=== PATIENT | female | born 1995 | race Caucasian/White ===

== ENCOUNTER 2025-05-24 13:50 | Emergency (ER) | payer SELFPAY ==
[~2025-05-24] VITALS: Ht 160 cm; Wt 87.5 kg
[2025-05-24 14:26] LABS: MEAN PLATELET VOLUME 8.7 FL (7.4-10.4); RED CELL DISTRIBUTION WIDTH 13.2 % (11.5-14.5)
--- NOTE | 2025-05-24 14:31 | Physician Documentation ---
History of Present Illness ~ Chief Complaint: Abdominal Pain Stated Complaint: KIDNEY PAIN Time Seen by MD: 14:26 Primary Medical Doctor: none HPI 30-year-old female presents to the ED with a complaint of aching abdominal pain and pelvic pain and combined with the lower back pain. Denies any fevers but does report urinary frequency and burning urination. She also denies any foul odors coming from her genitourinary area states that her urine looked cloudy with purulent discharge Day of Onset: May 24, 2025 Medication Reconciliation Allergies: Coded Allergies: No Known Allergies (Unverified , 05/24/25) Scheduled Cephalexin*Monohydrate* (Keflex*), 1 CAP PO QID Past Medical History Past Medical History: No Pertinent History Past Surgical History: no surgical history Alcohol Use: None Drug Use: none Lives with: Family Lives In: Home Review of Systems All Other Systems at this time: Reviewed and Negative ROS As stated above in the HPI, otherwise all systems are reviewed and negative. Physical Exam Vital Signs: Temperature: 98.9, Source: Oral, Heart Rate: 68, Respiratory Rate: 18, BP: 135/79, Pulse Oximetry: 99, Weight: 87.500 Oxygen Flow Rate: 0 Physical Exam General: Alert, no apparent distress. Cardiovascular: Regular rate and rhythm, no murmurs. Gastrointestinal: Soft, nontender, nondistended. Bowels sounds present. Negative CVA tenderness Neurologic: Oriented x4. Psychiatric: Normal mood and affect. Skin: Normal color, warm and dry. No edema, no ecchymosis. Progress Results/Orders Results/Orders Vital Signs 05/24/25 05/24/25 05/24/25 05/24/25 13:54 14:38 14:42 15:25 Temp 98.9 97.3 98.4 Pulse 68 75 78 Resp 18 20 18 18 B/P (MAP) 135/79 133/98 (110) 132/74 Pulse Ox 99 98 99 O2 Flow Rate 0 0 Laboratory Tests Test 05/24/25 13:58 05/24/25 14:10 Urine Specimen Description Cln catch midstream Urine Color Yellow Urine Clarity Turbid Urine pH 7.0 Urine Specific [place] 1.020 Urine Protein Negative Urine Glucose (UA) Negative Urine Ketones Negative Urine Occult Blood Negative Urine Nitrite Negative Urine Bilirubin Negative Urine Urobilinogen 1.0 Urine Leukocyte Esterase Negative Urine RBC 10-20 Urine WBC 0-4 Urine Squamous Epithelial Cells Few Urine Transitional Epithelial Cells Few Urine Amorphous Phosphates 3+ Urine Bacteria 2+ Urine Culture Indicated Not ind Volume Urine Centrifuged 10 ml Urine HCG, Qualitative Negative Urine Comment White Blood Count 8.1 Red Blood Count 4.70 Hemoglobin 13.9 Hematocrit 41.1 Mean Corpuscular Volume 87.6 Mean Corpuscular Hemoglobin 29.5 Mean Corpuscular Hemoglobin Concent 33.7 Red Cell Distribution Width 13.2 Platelet Count 373 Mean Platelet Volume 8.7 Neutrophils (%) (Auto) 68.3 Lymphocytes (%) (Auto) 20.8 L Monocytes (%) (Auto) 6.9 Eosinophils (%) (Auto) 2.5 Basophils (%) (Auto) 1.5 H Neutrophils # (Auto) 5.5 Lymphocytes # (Auto) 1.7 Monocytes # (Auto) 0.6 Eosinophils # (Auto) 0.2 Basophils # (Auto) 0.1 CBC Comment Sodium Level 137 Potassium Level 3.8 Chloride Level 102 Carbon Dioxide Level 29.3 Anion Gap 6 L Blood Urea Nitrogen 12 Creatinine 0.94 H Estimated GFR/1.73 m2 69 BUN/Creatinine Ratio 12.8 Glucose Level 94 Calcium Level 8.9 Total Bilirubin 0.3 Aspartate Amino Transf (AST/SGOT) 36 Alanine Aminotransferase (ALT/SGPT) 49 Alkaline Phosphatase 70 Total Protein 8.2 Albumin 4.0 Globulin 4.2 Albumin/Globulin Ratio 1.0 L Lipase 31 Chemistry Comments Microbiology Date/Time Source Procedure Growth Status 05/24/25 15:06 Urine Clean Catch Midstream Urine Culture - Preliminary Culture received. Resulted Medical Decision Making Additional information obtaine: old records Findings Treating patient empirically for suspected UTI Urinary Diff Dx:Considerations: Include: AAA, , Aortic dissection, Appendicitis, Bowel obstruction, Cholelithiasis, Choleangitis, DJD, Ectopic p regnancy, Hepatitis, HNP, Impaction, Intrauterine , Musculoskeletal pain, Ovarian torsion, Pancreatitis, PID, Post-Op complication, Pyelonephritis, Renal failure, Strain, Urinary Obstruction, Urolithiasis, Urinary retention, UTI, Vaginitis, Other Genital Diff Dx:Considerations: Unlikely: -Complete, - Incomplete, -Inevitable, Ablortion-Missed, -Threatened, Abruptio placentae, Bartholin abscess, Bartholin cyst, Blood loss anemia, Constipation, Cervicitis, Dsymenorrhea, Ectopic , Foreign body, Hormonal, Hidradenitis suppurativa, Intrauterine , Menorrhagia, Menometrorrhagia, Menstrual bleeding, Myomatous uterus, Perianal abscess, Physiologic discharge, Pinworms, PID, Placenta previa, , Precipitous Hct, Trauma, UTI, Vaginitis(osis)-Atrophic, Vaginitis, Vaginitis(osis)-Bacterial, Vaginitis(osis)-Candidal, Vaginitis(osis)-Contact, Vaginitis(osis)-Herpes, Vaginitis(osis)-Trich., Other Departure Disposition: HOME / SELF CARE / HOMELESS Impression: Primary Impression: Acute urinary tract infection Condition: Improved Discharge Instructions: Urinary Tract Infection, Adult Referrals: NO PRIMARY CARE PROVIDER (PCP) Prescriptions Cephalexin*Monohydrate* (Keflex*) 500 Mg Capsule 1 CAP PO QID, #40 CAP Prov: RICHIE WASHINGTON NP 05/24/25 Education Educated: Patient Educated regarding: diagnosis Signature Scribe Signature: m Attestation: Scribed for Richie Washington [employer] Sales[employer] by Richie Washington - GLORIA . 05/24/25 15:24 RICHIE WASHINGTON NP May 24, 2025 14:31
[2025-05-24 14:45] LABS: CREATININE 0.94 MG/DL (0.40-0.90); TOTAL CARBON DIOXIDE 29.3 MMOL/L (24-32); eCRCL 72 ML/MIN; eGFR 69 ML/MIN
[2025-05-24 14:48] LABS: LEUKOCYTE ESTERASE ,URINE NEGATIVE (Neg); NITRITES, URINE NEGATIVE (Neg); OCCULT BLOOD,URINE NEGATIVE (Neg)
[2025-05-24 14:49] LABS: URINE HCG NEGATIVE (NEG)
[2025-05-24 14:55] LABS: UA COLLECTION TYPE CLN CATCH MIDSTREAM
[2025-05-24 15:05] LABS: AMORPHOUS PHOSPHATES 3+; SQUAMOUS EPITHELIAL CELL,UR FEW /LPF (FEW)
[2025-05-24] MEDS ORDERED: CEPH-585 PO (15:23)
[2025-05-24 15:25] VITALS: BP 132/74; PULSE 78; RESP 18; TEMP 98.4; O2SAT 99
== END 2025-05-24 15:32 | disposition home or self-care (01) ==
LOC: ER 13:50
DX: N39.0 Urinary tract infection, site not specified (principal)
CPT/HCPCS: 36415; 80053; 81001; 81025; 83690; 85025; 87088; 99283

== ENCOUNTER 2025-06-02 10:19 | Emergency (ER) | payer SELFPAY ==
[~2025-06-02] VITALS: Ht 160 cm; Wt 87.0 kg
[~2025-06-02 10:19] MED LIST: CEPH-585 PO
[2025-06-02 10:23] VITALS: TEMP 97.6
[2025-06-02 10:42] LABS: LEUKOCYTE ESTERASE ,URINE NEGATIVE (Neg); NITRITES, URINE NEGATIVE (Neg); OCCULT BLOOD,URINE NEGATIVE (Neg)
[2025-06-02 10:45] LABS: UA COLLECTION TYPE NON-SPECIFIED
--- NOTE | 2025-06-02 10:52 | Physician Documentation ---
History of Present Illness ~ Chief Complaint: Urinary Symptoms Stated Complaint: URINARY COMPLICATIONS Time Seen by MD: 10:38 Primary Medical Doctor: none HPI 40-year-old female returns to the ED after recently being treated for a UTI. She states she is almost out of the prescribed Keflex. Her urinalysis/microbiology was nonspecific. She continues to have bilateral flank pain and urinary symptoms She has a abdominal cramping and pain after urination states her urine is cloudy with discharge. He denies any foul odors,denies any fishy odor Medication Reconciliation Allergies: Coded Allergies: No Known Allergies (Unverified , 06/02/25) Scheduled Cephalexin*Monohydrate* (Keflex*), 1 CAP PO QID Past Medical History Past Medical History: No Pertinent History Past Surgical History: no surgical history Alcohol Use: None Drug Use: none Lives with: Family Lives In: Home Physical Exam Vital Signs: Temperature: 97.6, Source: Temporal, Heart Rate: 75, Respiratory Rate: 16, BP: 115/89, Pulse Oximetry: 99, Weight: 87.000 Oxygen Flow Rate: 0 Progress Results/Orders Results/Orders Orders - RICHIE WASHINGTON [employer] Hcg, Ur Ql (06/02/25 10:38) Cbc/Diff (06/02/25 10:38) Chlam/Gc Amp Ur (06/02/25 11:10) Completed Orders - RICHIE WASHINGTON [employer] BMP (06/02/25 10:38) Vital Signs 06/02/25 10:23 Temp 97.6 Pulse 75 Resp 16 B/P (MAP) 115/89 Pulse Ox 99 O2 Flow Rate 0 Laboratory Tests Test 06/02/25 10:30 06/02/25 10:57 Urine Specimen Description Non-specified Urine Color Yellow Urine Clarity Clear Urine pH 7.5 Urine Specific [place] 1.015 Urine Protein Negative Urine Glucose (UA) Negative Urine Ketones Negative Urine Occult Blood Negative Urine Nitrite Negative Urine Bilirubin Negative Urine Urobilinogen 0.2 Urine Leukocyte Esterase Negative Urine Culture Indicated Not ind Volume Urine Centrifuged 10 ml Urine Comment CBC Comment Sodium Level 136 Potassium Level 3.9 Chloride Level 104 Carbon Dioxide Level 25.5 Anion Gap 7 L Blood Urea Nitrogen 8 Creatinine 0.75 Estimated GFR/1.73 m2 90 BUN/Creatinine Ratio 10.7 Glucose Level 93 Calcium Level 8.9 Albumin 4.1 Chemistry Comments Medical Decision Making Additional information obtaine: old records Findings treating empirically for uti and sti. Analysis unremarkable however her symptoms are persistent and her reported complaints are indicative of both UTI and possible STI. Going to use a second-generation cephalosporin and follow up with Flagyl for a week Urinary Diff Dx:Considerations: Include: AAA, , Aortic dissection, Appendicitis, Bowel obstruction, Cholelithiasis, Choleangitis, DJD, Ectopic , Hepatitis, HNP, Impaction, Intrauterine , Musculoskeletal pain, Ovarian torsion, Pancreatitis, PID, Post-Op complication, Pyelonephritis, Renal failure, Strain, Urinary Obstruction, Urolithiasis, Urinary retention, UTI, Vaginitis, Other Genital Diff Dx:Considerations: Include: -Complete, -Incompl ete, -Inevitable, Ablortion-Missed, -Threatened, Abruptio placentae, Bartholin abscess, Bartholin cyst, Blood loss anemia, Constipation, Cervicitis, Dsymenorrhea, Ectopic , Foreign body, Hormonal, Hidradenitis suppurativa, Intrauterine , Menorrhagia, Menometrorrhagia, Menstrual bleeding, Myomatous uterus, Perianal abscess, Physiologic discharge, Pinworms, PID, Placenta previa, , Precipitous Hct, Trauma, UTI, Vaginitis(osis)-Atrophic, Vaginitis, Vaginitis(osis)-Bacterial, Vaginitis(osis)- Candidal, Vaginitis(osis)-Contact, Vaginitis(osis)-Herpes, Vaginitis(osis)- Trich., Other Departure Disposition: HOME / SELF CARE / HOMELESS Impression: Primary Impression: Acute urinary tract infection Additional Impression: STI (sexually transmitted infection) Condition: Stable Discharge Instructions: Urinary Tract Infection, Adult Referrals: NO PRIMARY CARE PROVIDER (PCP) Prescriptions Metronidazole* (Flagyl*) 500 Mg Tablet 1 TAB PO Q12H for 7 Days, #14 TAB Prov: RICHIE WASHINGTON NP 06/02/25 Education Educated: Patient Educated regarding: diagnosis Signature Scribe Signature: y Attestation: Scribed for Richie Washington Np by Richie Serna NP . 06/02/25 11:28 RICHIE WASHINGTON NP Jun 02, 2025 10:52
[2025-06-02 11:17] LABS: CREATININE 0.75 MG/DL (0.40-0.90); TOTAL CARBON DIOXIDE 25.5 MMOL/L (24-32); eCRCL 90 ML/MIN; eGFR 90 ML/MIN
[2025-06-02 11:21] LABS: MEAN PLATELET VOLUME 8.5 FL (7.4-10.4); RED CELL DISTRIBUTION WIDTH 13.1 % (11.5-14.5)
[2025-06-02] MEDS ORDERED: METR-159 PO (11:28)
[2025-06-02] MEDS: CefTRIAXone 1000mg IM Kit (w/lidocaine diluent) IM ONE (11:40)
[2025-06-02 11:45] VITALS: BP 118/92; PULSE 74; RESP 16; O2SAT 100
== END 2025-06-02 11:47 | disposition home or self-care (01) ==
LOC: ER 10:20
DX: N39.0 Urinary tract infection, site not specified (principal); A64 Unspecified sexually transmitted disease
CPT/HCPCS: 36415; 80048; 81003; 85025; 87491; 87591; 96372; 99283; J0696